=== PATIENT | male | born 1995 | race Asian ===

== ENCOUNTER 2017-05-26 21:34 | Emergency (ER) | payer BC, OTHER ==
[2017-05-26 22:48] LABS: Bilirubin Negative (Negative); Blood, Urine Negative (Negative); Clarity CLEAR (Clear); Glucose, Urine (Dipstick) Negative (Negative); Leukocyte Negative (Negative); Nitrite Negative (Negative); Protein, Urine (Dipstick) Negative (Neg-Trace); Urobilinogen 0.2 mg/dL (0.2-1.0); pH, Urine 6.5 (5.0-9.0)
[2017-05-26 22:53] LABS: #Eosinphils 0.2 thou/uL (0.0-0.7); #Lymphocytes 2.2 thou/uL (1.20-3.40); #Monocytes 0.4 thou/uL (0.11-0.59); #Neutrophils 3.6 thou/uL (1.40-6.50); %Basophils 0.7 % (0.0-1.0); %Eosinophils 2.7 % (0.0-10.0); %Lymphocytes 33.7 % (21.0-51.0); %Monocytes 5.9 % (0.0-10.0); %Neutrophils 56.9 % (42.0-75.0); Mean Corpuscular HGB CONC 34.2 g/dL (32.0-36.0); Mean Corpuscular Hemoglobin 29.3 pg (27.0-31.0); Mean Corpuscular Volume 85.5 fl (80.0-94.0); Mean Platelet Volume 6.5 fL (7.4-10.4); Platelet Count 266 thou/uL (130-400); Red Blood Cell (RBC) Count 5.81 mill/uL (4.70-6.10); White Blood Cell (WBC) Count 6.4 thou/uL (4.8-10.8)
[2017-05-26 23:15] LABS: ALT (SGPT) 33 U/L (8-55); AST (SGOT) 29 U/L (5-34); Albumin 4.9 g/dL (3.5-5.0); Alkaline Phosphatase 75 U/L (40-150); Anion Gap 14 mmol/L (10-20); BUN (Urea Nitrogen) 19 mg/dL (8.9-20.6); Bilirubin, Total 0.3 mg/dL (0.2-1.2); Calc. Creatinine Clearance 0 mL/min (70-130); Calcium 9.8 mg/dL (7.8-10.44); Carbon Dioxide 26 mmol/L (22-29); Chloride 105 mmol/L (98-107); Estimated GFR-MDRD 85; Globulin 3.5 g/dL (2.4-3.5); Glucose 105 mg/dL (70-105); Lipase 30 U/L (8-78); Potassium 3.7 mmol/L (3.5-5.1); Protein, Total 8.4 g/dL (6.0-8.3); Sodium 141 mmol/L (136-145)
[2017-05-27] MEDS ORDERED: diphenhydrAMINE 50 MG/ML VIAL ONE (00:41)
[2017-05-27] MEDS ORDERED: Promethazine HCl 25 MG/ML VIAL ONE (00:41)
--- NOTE | 2017-05-27 08:28 | CT ---
PRELIMINARY REPORT/[facility]/EMERGENTY AFTER-HOURS PROCEDURE CT Head Without Intravenous Contrast CLINICAL HISTORY: 21 years old, male; Pain; Headache; Patient HX: M21 presents to ed for headache, nausea, and vomiting . Pt reports recurrent headache that has been worsening over the past 2 weeks. TECHNIQUE: Axial computed tomography images of the head/brain without intravenous contrast. COMPARISON: No relevant prior studies available. FINDINGS: Brain: Mild volume loss No hemorrhage. No significant white matter disease. No edema. Ventricles: Unremarkable. No ventriculomegaly. Bones/joints: Unremarkable. No acute fracture. Soft tissues: Unremarkable. Sinuses: Small air-fluid level in the left maxillary sinus. Minimal fluid in the left ethmoid air nnamdi ls Mastoid air cells: Unremarkable as visualized. No mastoid effusion. IMPRESSION: Left-sided sinusitis as noted No intracranial hemorrhage. Please see discussion above. Thank you for allowing us to participate in the care of your patient. Dictated and Authenticated by: Tim Klein MD 05/27/2017 1:14 AM Central Time ([place] & [place]) FINAL REPORT EMERGENCY AFTER HOURS BRAIN CT WITHOUT IV CONTRAST: Date: 05/27/17 Time: 0053 hours IMPRESSION: Sinus mucosal disease. No significant acute intracranial process. Report in agreement with preliminary report given on-call by Evon. POS: [facility]
== END 2017-05-27 01:52 | disposition home or self-care (01) ==
LOC: ERS 21:34
DX: J32.9 Chronic sinusitis, unspecified (principal)
CPT/HCPCS: 36415; 70450; 80053; 81003; 83690; 85025; 96361; 96374; 96375; J1200; J2550